=== PATIENT | female | born 1975 | race African-American/Black ===

== ENCOUNTER 2018-08-09 23:30 | Emergency (ER) | payer OTHER ==
[~2018-08-09] VITALS: Ht 177.8 cm; Wt 63.5 kg
--- OUTSIDE RECORDS SUMMARY | 2018-08-09 23:33 | XMS REPORT | Clinical Summary ---
Author Author [facility] Organization [facility] Address Unknown Phone Unavailable Care Team Providers Care Roll Former Name Role Phone Asked, No Pcp PCP Unavailable Allergies No Known Allergies Medications End Date Status Medication Sig Dispensed Refills Start Date 05/03/2018 magnesium citrate Take 1 Bottle 296 mL 0 solution (296 mL 8 total) by mouth once for 1 dose. 05/13/2018 etodolac (LODINE) 500 MG Take 1 tablet 20 tablet 0 tablet (500 mg 8 total) by mouth 2 (two) times a day as needed (pain) for up to 10 days. Active Problems Not on file Encounters Care Team Description Date Type Specialty Corey Murphy MD Flank pain (Primary Dx); Constipation, unspecified constipation type 05/03/2018 Emergency Emergency Medicine 05/03/2018 Travel after 08/08/2017 Social History Date Tobacco Use Types Packs/Day Years Used Never Assessed Sex Assigned at Date Recorded Not on file Industry Job Start Date Occupation Not on file Not on file Not on file Travel End Travel History Travel Start No recent travel history available. Last Filed Vital Signs Time Taken Vital Sign Reading 05/03/2018 9:40 PM [employer] Blood Pressure 121/72 05/03/2018 9:40 PM [employer]IN[employer] PROGRAMMER Pulse 81 05/03/2018 6:52 PM [employer]IN[employer] PROGRAMMER Temperature 36.8 C (98.2 F) 05/03/2018 9:40 PM [employer]IOIN[employer] PROGRAMMER Respiratory Rate 20 05/03/2018 9:40 PM BIOINFORMATICS PROGRAMMER Oxygen Saturation 99% - Inhaled Oxygen - Concentration 05/03/2018 6:54 PM [employer]IN[employer] PROGRAMMER Weight 63.5 kg (140 lb) 05/03/2018 6:54 PM BIOINFORMATICS PROGRAMMER Height 177.8 cm (5' 10") 05/03/2018 6:54 PM BIOIN[employer] PROGRAMMER Body Mass Index 20.09 Plan of Treatment Health Maintenance Due Date Last Done Comments CERVICAL CANCER SCREENING 1995 INFLUENZA VACCINE 01/17/2018 Procedures Comments Procedure Name Priority Date/Time Associated Diagnosis CT ABDOMEN PELVIS W STAT 05/03/2018 CONTRAST 8:44 PM BIOINFORMAT[employer] PROGRAMMER ESTIMATED GFR STAT 05/03/2018 7:45 PM BIOINFORMATICS PROGRAMMER HCG QUALITATIVE, SERUM STAT 05/03/2018 SCREEN 7:45 PM BIOINFORMATICS PROGRAMMER LIPASE LEVEL STAT 05/03/2018 7:45 PM BIOINFORMATICS PROGRAMMER COMPREHENSIVE METABOLIC STAT 05/03/2018 PANEL 7:45 PM BIOINFORMATICS PROGRAMMER URINALYSIS SCREEN AND STAT 05/03/2018 MICROSCOPY, WITH REFLEX 7:45 PM BIOINFORMATICS PROGRAMMER TO CULTURE PARTIAL THROMBOPLASTIN STAT 05/03/2018 TIME (PTT) 7:45 PM BIOINFORMATICS PROGRAMMER PROTHROMBIN TIME WITH INR STAT 05/03/2018 7:45 PM BIOINFORMATICS PROGRAMMER HC COMPLETE BLD COUNT STAT 05/03/2018 W/AUTO DIFF 7:45 PM BIOINFORMATICS PROGRAMMER URINE CULTURE STAT 05/03/2018 7:45 PM BIOINFORMATICS PROGRAMMER XR CHEST 2 VW STAT 05/03/2018 7:24 PM BIOINFORMATICS PROGRAMMER after 08/08/2017 Results * CT Abdomen Pelvis W Contrast (05/03/2018 8:44 PM BIOINFORMATICS PROGRAMMER) Narrative Performed At CT ABDOMEN PELVIS W CONTRAST [facility] CLINICAL INDICATION:abdominal pain TECHNIQUE: Multidetector CT of the abdomen and pelvis was performed following intravenous administration of iodinated contrast with multiplanar reformats. CT scans are performed using radiation dose reduction techniques (iterative reconstruction and/or automated exposure control). Technical factors are evaluated and adjusted to ensure appropriate moderation of exposure. Automated dose management technology is applied to adjust radiation exposure while achieving a diagnostic quality image. COMPARISON:None. FINDINGS: Lung bases:Clear. Liver:Few subcentimeter hepatic cysts/hypodensities are overall too small to characterize though are likely benign. [No follow-up recommended unless clinically warranted.] Gallbladder and biliary:Gallbladder is relatively contracted. Common bile duct is not dilated. Pancreas:Normal. Spleen:Normal. Gastrointestinal:Moderate fecal material throughout the colon. Large and small bowel are normal in caliber. Appendix is visualized and appears normal. Adrenals:Normal. Kidneys and ureters:No mass or hydronephrosis. Urinary bladder:Normal. Lymph nodes:No enlarged lymph nodes in the abdomen or pelvis. Peritoneum:No ascites or free air. Vascular:Unremarkable. Reproductive organs:Uterus is normal. Unremarkable adnexae. Abdominal wall:Unremarkable. Bones:No acute osseous abnormalities. IMPRESSION: Moderate fecal material throughout the colon. Otherwise negative CT for acute pathology within the abdomen and pelvis. [facility]-[id number] Procedure Note Interface, Radiology Results Incoming - 05/03/2018 8:[address] ABDOMEN PELVIS W CONTRAST CLINICAL INDICATION: abdominal pain TECHNIQUE: Multidetector CT of the abdomen and pelvis was performed following intravenous administration of iodinated contrast with multiplanar reformats. CT scans are performed using radiation dose reduction techniques (iterative reconstruction and/or automated exposure control). Technical factors are evaluated and adjusted to ensure appropriate moderation of exposure. Automated dose management technology is applied to adjust radiation exposure while achieving a diagnostic quality image. COMPARISON: None. FINDINGS: Lung bases: Clear. Liver: Few subcentimeter hepatic cysts/hypodensities are overall too small to characterize though are likely benign. [No follow-up recommended unless clinically warranted.] Gallbladder and biliary: Gallbladder is relatively contracted. Common bile duct is not dilated. Pancreas: Normal. Spleen: Normal. Gastrointestinal: Moderate fecal material throughout the colon. Large and small bowel are normal in caliber. Appendix is visualized and appears normal. Adrenals: Normal. Kidneys and ureters: No mass or hydronephrosis. Urinary bladder: Normal. Lymph nodes: No enlarged lymph nodes in the abdomen or pelvis. Peritoneum: No ascites or free air. Vascular: Unremarkable. Reproductive organs: Uterus is normal. Unremarkable adnexae. Abdominal wall: Unremarkable. Bones: No acute osseous abnormalities. IMPRESSION: Moderate fecal material throughout the colon. Otherwise negative CT for acute pathology within the abdomen and pelvis. [facility]-[id number] Performing Organization Address City/State/Zipcode Phone Number [place] [address] [place] [address] * Urinalysis screen and microscopy, with reflex to culture (05/03/2018 7:45 PM BIOINFORMATICS PROGRAMMER) Specimen site Clean catch [facility] Color, UA Straw [facility] Appearance, UA Clear [facility] Specific gravity, UA 1.005 1.001 - 1.035 [facility] pH, UA 8.0 5.0 - 8.5 [facility] Protein, UA Negative Negative [facility] Glucose, UA Negative Negative [facility] Ketones, UA Negative Negative [facility] Bilirubin, UA Negative Negative [facility] Blood, UA Moderate (A) Negative [facility] Nitrite, UA Negative Negative [facility] Urobilinogen, UA Negative <2.0 [facility] Leukocyte esterase, UA Negative Negative [facility] Epithelial cells, UA Few /HPF [facility] WBC, UA 0-5 0 - 4 /HPF [facility] RBC, UA 6-10 (H) 0 - 5 /HPF [facility] Bacteria, UA None seen None seen [facility] Yeast, UA None seen [facility] Yeast with pseudohyphae, None seen [facility] Specimen Urine Performing Organization Address [facility] [address]/[facility] Phone Number [address] [place] [address] PATHOLOGY AND GENOMIC MEDICINE [address] * Estimated GFR (05/03/2018 7:45 PM BIOINFORMATICS PROGRAMMER) Estimated GFR >=90 mL/min/1.73 m2 [facility] Comment: [facility] CatergoryUnitsInte rpretation G1 >=90 Normal or high G2 60-89Mildly decreased G2y92-59 Mildly to moderately decreased C3p77-50 Moderately to severely decreased G4 15-29Severely decreased G5 <15Kidney failure The eGFR was calculated using the Chronic Kidney Disease Epidemiology Collaboration (CKD-EPI) equation. Interpretation is based on recommendations of the National Kidney Foundation-Kidney Disease Outcomes Quality Initiative (NKF-KDOQI) published in 2014. Specimen Plasma specimen Performing Organization Address [facility] [address]/[facility] Phone Number [address] [place] [address] PATHOLOGY AND GENOMIC MEDICINE [address] * Partial thromboplastin time, activated (05/03/2018 7:45 PM BIOINFORMATICS PROGRAMMER) PTT 28.9 23.0 - 36.0 sec JEREMIAH YAZDANISM Comment: [facility] PTT therapeutic range for unfractionated heparin is 61.0-112.0 seconds which corresponds to Anti-Xa 0.3-0.7 U/ml. Specimen Blood Performing Organization Address [facility] [address]/[facility] Phone Number [address] [place] [address] PATHOLOGY AND GENOMIC MEDICINE [address] * Prothrombin time with INR (05/03/2018 7:45 PM BIOINFORMATICS PROGRAMMER) Prothrombin time 13.0 11.5 - 14.5 sec [facility] INR 1.0 [facility] Comment: [facility] The International Normalized Ratio (INR) is a therapeutic monitoring tool for patients who are stable on oral anticoagulant therapy. An INR of 2.0-3.0 is suggested for deep vein thrombosis/pulmonary embolism. Specimen Blood Performing Organization Address [facility] [address]/[facility] Phone Number [place] [address] [place] [address] PATHOLOGY AND [facility] MEDICINE [address] * CBC with platelet and differential (05/03/2018 7:45 PM BIOINFORMATICS PROGRAMMER) WBC 6.49 4.50 - 11.00 k/uL [facility] RBC 4.14 (L) 4.20 - 5.50 m/uL [facility] HGB 11.9 (L) 12.0 - 16.0 g/dL [facility] HCT 36.5 (L) 37.0 - 47.0 % [facility] MCV 88.2 82.0 - 100.0 fL [facility] MCH 28.7 27.0 - 34.0 pg [facility] MCHC 32.6 31.0 - 37.0 g/dL [facility] RDW - SD 38.9 37.0 - 55.0 fL [facility] MPV 10.7 8.8 - 13.2 fL [facility] Platelet count 282 150 - 400 k/uL [facility] Nucleated RBC 0.00 /100 WBC [facility] Neutrophils 60.9 39.0 - 69.0 % [facility] Lymphocytes 28.4 25.0 - 45.0 % [facility] Monocytes 6.6 0.0 - 10.0 % [facility] Eosinophils 2.8 0.0 - 5.0 % [facility] Basophils 1.1 (H) 0.0 - 1.0 % [facility] Specimen Blood Performing Organization Address [facility] [address]/[facility] Phone Number [address] [place] [address] PATHOLOGY AND GENOMIC MEDICINE [address] * Urine culture (05/03/2018 7:45 PM BIOINFORMATICS PROGRAMMER) Urine culture SEE COMMENTComment: [facility] Bacteriuria screen negative. [facility] Specimen Urine Performing Organization Address [facility] Phone Number [address] [place] [address] PATHOLOGY AND GENOMIC MEDICINE [address] * hCG qualitative, serum screen (05/03/2018 7:45 PM BIOINFORMATICS PROGRAMMER) hCG qualitative, serum Negative [facility] Comment: [facility] [id number] EXP Specimen Blood Performing Organization Address [facility] [address]/[facility] Phone Number [address] [place] [address] PATHOLOGY AND GENOMIC MEDICINE [address] * Lipase level (05/03/2018 7:45 PM BIOINFORMATICS PROGRAMMER) Lipase 42 13 - 60 U/L [facility] Specimen Plasma specimen Performing Organization Address [facility] [address]/[facility] Phone Number [address] [place] [address] PATHOLOGY AND GENOMIC MEDICINE [address] * Comprehensive metabolic panel (05/03/2018 7:45 PM BIOINFORMATICS PROGRAMMER) Sodium 140 135 - 148 mEq/L [facility] Potassium 3.9 3.5 - 5.0 mEq/L [facility] Chloride 104 98 - 112 mEq/L [facility] CO2 25 24 - 31 mEq/L [facility] Anion gap 11@ANIO 7 - 15 mEq/L [facility] BUN 13 6 - 20 mg/dL [facility] Creatinine 0.80 0.50 - 0.90 mg/dL [facility] Glucose 66 65 - 99 mg/dL [facility] Calcium 9.6 8.3 - 10.2 mg/dL [facility] Protein 8.2 6.3 - 8.3 g/dL [facility] Comment: [facility] 4.6-7.0 g/dL 1 week 4.4-7.6 g/dL 7 months-1year 5.1-7.3 g/dL 1-2 years5.6-7 .5 g/dL >3 years6.0-8 .0 g/dL 18-150 6.3-8.3 g/dL Albumin 4.5 3.5 - 5.0 g/dL [facility] A/G ratio 1.2 0.7 - 3.8 [facility] Alkaline phosphatase 51 35 - 104 U/L [facility] AST 31 10 - 35 U/L [facility] ALT 37 5 - 50 U/L [facility] Total bilirubin 0.3 0.0 - 1.2 mg/dL [facility] Specimen Plasma specimen Performing Organization Address City/State/Zipcode Phone Number [facility] [address] [place] [address] PATHOLOGY AND GENOMIC MEDICINE [address] * XR Chest 2 Vw (05/03/2018 7:24 PM BIOINFORMATICS PROGRAMMER) Narrative Performed At EXAMINATION:XR CHEST 2 VW [facility] CLINICAL HISTORY:Flank pain COMPARISON:None IMPRESSION: Unremarkable 2 view chest The lungs are clear. Few scattered benign granulomatous changes The heart is not enlarged. The bony structures are within normal limits. [id number] Procedure Note Hm Interface, Radiology Results Incoming - 05/03/2018 7:28 PM BIOINFORMATICS PROGRAMMER EXAMINATION: XR CHEST 2 VW CLINICAL HISTORY: Flank pain COMPARISON: None IMPRESSION: Unremarkable 2 view chest The lungs are clear. Few scattered benign granulomatous changes The heart is not enlarged. The bony structures are within normal limits. [id number] Performing Organization Address City/State/Zipcode Phone Number [facility] [address] [place] [address] after 08/08/2017 Advance Directives Patient has advance care planning documents on file. For more information, arik pate contact: Jeremiah Mcneil [address] [place] [address]
--- OUTSIDE RECORDS SUMMARY | 2018-08-09 23:33 | XMS REPORT ---
Author Author [facility] Address Unknown Phone Unavailable Care Team Providers Care Mirror Painter Name Role Phone Unavailable Unavailable Payers Payer Name Policy Type Policy Number Effective Date Expiration Date Problems This patient has no known problems. Allergies, Adverse Reactions, Alerts Allergy Name Allergy Type Status Severity Reaction(s) Onset Date Inactive Date Treating Clinician Comments NSAIDS (Non-Steroidal Anti-Inflamma DA Active [place] 2013-10-20 00:00:00 ASPIRIN DA Active [place] 2013-10-20 00:00:00 Medications This patient has no known medications.
[2018-08-10] MEDS ORDERED: ONDANSETRON HCL INJ 2MG/ML 2ML 2 MG/ML VIAL IV STA (00:09)
[2018-08-10] MEDS ORDERED: MORPHINE SULFATE INJ 4 MG/ML INJ 1ML IV ONE (00:15)
[2018-08-10 01:18] LABS: BASOPHILS # (AUTO) 0.1 (0.0-0.1); BASOPHILS % 0.6 % (0.0-1.0); EOSINOPHILS # (AUTO) 0.1 (0.0-0.4); EOSINOPHILS % 1.5 % (0.0-6.0); HEMATOCRIT 31.2 % (34.2-44.1); HEMOGLOBIN 10.5 g/dL (12.0-16.0); MEAN CORPUSCULAR HEMOGLOBIN 28.2 pg (28-32); MEAN CORPUSCULAR HGB CONC 33.7 g/dL (31-35); MEAN CORPUSCULAR VOLUME 83.6 fL (81-99); MONOCYTES # (AUTO) 0.4 (0.2-0.8); MONOCYTES % 4.5 % (4.4-11.3); NEUTROPHILS # (AUTO) 7.1 (2.1-6.9); NEUTROPHILS % 82.1 % (38.7-80.0); PLATELET COUNT 265 x10e3/uL (140-360); RED BLOOD COUNT 3.73 x10e6/uL (3.6-5.1); RED CELL DISTRIBUTION WIDTH 13.3 % (11.7-14.4)
[2018-08-10 01:36] LABS: BILIRUBIN,URINE NEGATIVE (NEGATIVE); CLARITY,URINE CLOUDY (CLEAR); COLOR,URINE STRAW (YELLOW); KETONES,URINE NEGATIVE (NEGATIVE); LEUKOCYTE ESTERASE ,URINE TRACE (NEGATIVE); NITRITE,URINE NEGATIVE (NEGATIVE); PROTEIN,URINE DIPSTICK NEGATIVE (NEGATIVE); URINE UROBILINOGEN 0.2 mg/dL (0.2 - 1)
[2018-08-10 01:37] LABS: PREGNANCY TEST, URINE NEGATIVE (NEGATIVE)
[2018-08-10 01:38] LABS: ALANINE AMINOTRANSFERASE 32 IU/L (0-55); ALBUMIN 3.6 g/dL (3.5-5.0); ALBUMIN/GLOBULIN RATIO 1.1 (0.8-2.0); ALKALINE PHOSPHATASE 53 IU/L (40-150); BLOOD UREA NITROGEN 7 mg/dL (7-26); BUN/CREATININE RATIO 9 (6-25); CALCIUM 8.9 mg/dL (8.4-10.2); CARBON DIOXIDE 22 mmol/L (22-29); CHLORIDE 108 mmol/L (98-107); CREATININE, SERUM 0.77 mg/dL (0.57-1.11); EST GLOMERULAR FILTRATION RATE > 60 ML/MIN (60-); GLUCOSE 101 mg/dL (74-118); SODIUM 138 mmol/L (136-145)
[2018-08-10 01:49] LABS: BACTERIA,URINE MANY /HPF; EPITHELIAL CELLS,URINE FEW /LPF; RBC,URINE >50 /HPF (0-5)
== END 2018-08-10 02:55 | disposition home or self-care (01) ==
LOC: ER 23:30
DX: R10.9 Unspecified abdominal pain (principal); R11.0 Nausea; N30.91 Cystitis, unspecified with hematuria
CPT/HCPCS: 36415; 80053; 81001; 81025; 85025; 96374; 96375; 99284; J2270; J2405

== ENCOUNTER 2018-08-27 20:06 | Emergency (ER) | payer OTHER ==
--- OUTSIDE RECORDS SUMMARY | 2018-08-27 20:09 | XMS REPORT | Clinical Summary ---
Author Author [facility] Address Unknown Phone Unavailable Care Team Providers [facility] Agent Name Role Phone Asked, No Pcp PCP [...] 05/03/2018 Emergency Emergency Medicine 05/03/2018 Travel after 08/26/2017 Social History Date Tobacco Use Types Packs/Day Years Used Never Assessed Sex Assigned at Date Recorded Not on file Industry Job Start Date Occupation Not on file Not on file Not on file Travel End Travel History Travel Start No recent travel history available. Last Filed Vital Signs Time Taken Vital Sign Reading 05/03/2018 9:40 PM INTERNAL CONTROLS MANAGER Blood Pressure 121/72 05/03/2018 9:40 PM INTERNAL CONTROLS MANAGER Pulse 81 05/03/2018 6:52 PM INTERNAL CONTROLS MANAGER Temperature 36.8 C (98.2 F) 05/03/2018 9:40 PM INTERNAL CONTROLS MANAGER Respiratory Rate 20 05/03/2018 9:40 PM INTERNAL CONTROLS MANAGER Oxygen Saturation 99% - Inhaled Oxygen - Concentration 05/03/2018 6:54 PM INTERNAL CONTROLS MANAGER Weight 63.5 kg (140 lb) 05/03/2018 6:54 PM INTERNAL CONTROLS MANAGER Height 177.8 cm (5' 10") 05/03/2018 6:54 PM INTERNAL CONTROLS MANAGER Body Mass Index 20.09 Plan of Treatment Health Maintenance Due Date Last Done Comments CERVICAL CANCER SCREENING 1995 INFLUENZA VACCINE 01/17/2018 Procedures Comments Procedure Name Priority Date/Time Associated Diagnosis CT ABDOMEN PELVIS W STAT 05/03/2018 CONTRAST 8:44 PM INTERNAL CONTROLS MANAGER ESTIMATED GFR STAT 05/03/2018 7:45 PM INTERNAL CONTROLS MANAGER HCG QUALITATIVE, SERUM STAT 05/03/2018 SCREEN 7:45 PM INTERNAL CONTROLS MANAGER LIPASE LEVEL STAT 05/03/2018 7:45 PM INTERNAL CONTROLS MANAGER COMPREHENSIVE METABOLIC STAT 05/03/2018 PANEL 7:45 PM INTERNAL CONTROLS MANAGER URINALYSIS SCREEN AND STAT 05/03/2018 MICROSCOPY, WITH REFLEX 7:45 PM INTERNAL CONTROLS MANAGER TO CULTURE PARTIAL THROMBOPLASTIN STAT 05/03/2018 TIME (PTT) 7:45 PM INTERNAL CONTROLS MANAGER PROTHROMBIN TIME WITH INR STAT 05/03/2018 7:45 PM INTERNAL CONTROLS MANAGER HC COMPLETE BLD COUNT STAT 05/03/2018 W/AUTO DIFF 7:45 PM INTERNAL CONTROLS MANAGER URINE CULTURE STAT 05/03/2018 7:45 PM INTERNAL CONTROLS MANAGER XR CHEST 2 VW STAT 05/03/2018 7:24 PM INTERNAL CONTROLS MANAGER after 08/26/2017 Results * CT Abdomen Pelvis W Contrast (05/03/2018 8:44 PM INTERNAL CONTROLS MANAGER) Narrative Performed At CT ABDOMEN PELVIS W [...] acute pathology within the abdomen and pelvis. [facility]-[id number] Procedure Note Interface, Radiology Results Incoming - 05/03/2018 8:52 PM INTERNAL CONTROLS MANAGER CT ABDOMEN PELVIS W CONTRAST CLINICAL INDICATION: [...] acute pathology within the abdomen and pelvis. [facility]-[id number] Performing Organization Address City/State/Zipcode Phone Number [place] [address] [place] [address] * Urinalysis screen and microscopy, with reflex to culture (05/03/2018 7:45 PM INTERNAL CONTROLS MANAGER) Specimen site Clean catch [facility] Color, UA Straw [facility] Appearance, UA Clear [facility] Specific gravity, UA 1.005 1.001 - 1.035 [facility] pH, UA 8.0 5.0 - 8.5 [facility] Protein, UA Negative Negative [facility] Glucose, UA Negative Negative [facility] Ketones, UA Negative Negative [facility] Bilirubin, UA Negative Negative [facility] Blood, UA Moderate (A) Negative [facility] Nitrite, UA Negative Negative [facility] Urobilinogen, UA Negative <2.0 [facility] Leukocyte esterase, UA Negative Negative [facility] Epithelial cells, UA Few /HPF [facility] WBC, UA 0-5 0 - 4 /HPF [facility] RBC, UA 6-10 (H) 0 - 5 /HPF [facility] Bacteria, UA None seen None seen [facility] Yeast, UA None seen [facility] Yeast with pseudohyphae, None seen [facility] Specimen Urine Performing Organization Address [facility] Phone Number [address] [place] [address] PATHOLOGY AND GENOMIC MEDICINE [address] * Estimated GFR (05/03/2018 7:45 PM INTERNAL CONTROLS MANAGER) Estimated GFR >=90 mL/min/1.73 m2 [facility] Comment: [facility] CatergoryUnitsInte rpretation G1 >=90 Normal or high G2 60-89Mildly decreased [id number] Mildly to moderately decreased [id number] Moderately to severely decreased G4 15-29Severely decreased G5 <15Kidney failure The eGFR was calculated using the Chronic Kidney Disease Epidemiology Collaboration (CKD-EPI) equation. Interpretation is based on recommendations of the National Kidney Foundation-Kidney Disease Outcomes Quality Initiative (NKF-KDOQI) published in 2014. Specimen Plasma specimen Performing Organization Address [facility] Phone Number [address] [place] [address] PATHOLOGY AND GENOMIC MEDICINE [address] * Partial thromboplastin time, activated (05/03/2018 7:45 PM INTERNAL CONTROLS MANAGER) PTT 28.9 23.0 - 36.0 sec [facility] Comment: [facility] PTT therapeutic range for unfractionated heparin is 61.0-112.0 seconds which corresponds to Anti-Xa 0.3-0.7 U/ml. Specimen Blood Performing Organization Address [facility] Phone Number [address] [place] [address] PATHOLOGY AND GENOMIC MEDICINE [address] * Prothrombin time with INR (05/03/2018 7:45 PM INTERNAL CONTROLS MANAGER) Prothrombin time 13.0 11.5 - 14.5 sec [facility] INR 1.0 [facility] Comment: [facility] The International Normalized Ratio (INR) is a therapeutic monitoring tool for patients who are stable on oral anticoagulant therapy. An INR of 2.0-3.0 is suggested for deep vein thrombosis/pulmonary embolism. Specimen Blood Performing Organization Address [facility] Phone Number [place] [address] [place] [address] PATHOLOGY AND [facility] MEDICINE [address] * CBC with platelet and differential (05/03/2018 7:45 PM INTERNAL CONTROLS MANAGER) WBC 6.49 4.50 - 11.00 k/uL [facility] RBC 4.14 (L) 4.20 - 5.50 m/uL [facility] HGB 11.9 (L) 12.0 - 16.0 g/dL [facility] HCT 36.5 (L) 37.0 - 47.0 % [facility] MCV 88.2 82.0 - 100.0 fL [facility] MCH 28.7 27.0 - 34.0 pg [facility] MCHC 32.6 31.0 - 37.0 g/dL [facility] RDW - SD 38.9 37.0 - 55.0 fL [facility] MPV 10.7 8.8 - 13.2 fL [facility] Platelet count 282 150 - 400 k/uL [facility] Nucleated RBC 0.00 /100 WBC [facility] Neutrophils 60.9 39.0 - 69.0 % [facility] Lymphocytes 28.4 25.0 - 45.0 % [facility] Monocytes 6.6 0.0 - 10.0 % [facility] Eosinophils 2.8 0.0 - 5.0 % [facility] Basophils 1.1 (H) 0.0 - 1.0 % [facility] Specimen Blood Performing Organization Address [facility] Phone Number [address] [place] [address] PATHOLOGY AND GENOMIC MEDICINE [address] * Urine culture (05/03/2018 7:45 PM INTERNAL CONTROLS MANAGER) Urine culture SEE COMMENTComment: [facility] Bacteriuria screen negative. [facility] Specimen Urine Performing Organization Address [facility] Phone Number [address] [place] [address] PATHOLOGY AND GENOMIC MEDICINE [address] * hCG qualitative, serum screen (05/03/2018 7:45 PM INTERNAL CONTROLS MANAGER) hCG qualitative, serum Negative [facility] Comment: [facility] [address] [id number] EXP Specimen Blood Performing Organization Address [facility] Phone Number [address] [place] [address] PATHOLOGY AND GENOMIC MEDICINE [address] * Lipase level (05/03/2018 7:45 PM INTERNAL CONTROLS MANAGER) Lipase 42 13 - 60 U/L [facility] Specimen Plasma specimen Performing Organization Address [facility] Phone Number [address] [place] [address] PATHOLOGY AND GENOMIC MEDICINE [address] * Comprehensive metabolic panel (05/03/2018 7:45 PM INTERNAL CONTROLS MANAGER) Sodium 140 135 - 148 mEq/L [facility] Potassium 3.9 3.5 - 5.0 mEq/L [facility] Chloride 104 98 - 112 mEq/L [facility] CO2 25 24 - 31 mEq/L [facility] Anion gap 11@ANIO 7 - 15 mEq/L [facility] BUN 13 6 - 20 mg/dL [facility] Creatinine 0.80 0.50 - 0.90 mg/dL [facility] Glucose 66 65 - 99 mg/dL [facility] Calcium 9.6 8.3 - 10.2 mg/dL [facility] Protein 8.2 6.3 - 8.3 g/dL [facility] Comment: [facility] 4.6-7.0 g/dL 1 week 4.4-7.6 g/dL 7 months-1year 5.1-7.3 g/dL 1-2 years5.6-7 .5 g/dL >3 years6.0-8 .0 g/dL 18-150 6.3-8.3 g/dL Albumin 4.5 3.5 - 5.0 g/dL [facility] A/G ratio 1.2 0.7 - 3.8 [facility] Alkaline phosphatase 51 35 - 104 U/L [facility] AST 31 10 - 35 U/L [facility] ALT 37 5 - 50 U/L [facility] Total bilirubin 0.3 0.0 - 1.2 mg/dL [facility] Specimen Plasma specimen Performing Organization Address City/State/Zipcode Phone Number [facility] [address] [place] [address] PATHOLOGY AND GENOMIC MEDICINE [address] * XR Chest 2 Vw (05/03/2018 7:24 PM INTERNAL CONTROLS MANAGER) Narrative Performed At EXAMINATION:XR CHEST 2 VW [facility] CLINICAL HISTORY:Flank pain COMPARISON:None IMPRESSION: Unremarkable 2 view chest The lungs are clear. Few scattered benign granulomatous changes The heart is not enlarged. The bony structures are within normal limits. [id number] Procedure Note Hm Interface, Radiology Results Incoming - 05/03/2018 7:28 PM INTERNAL CONTROLS MANAGER EXAMINATION: XR CHEST 2 VW CLINICAL HISTORY: Flank pain COMPARISON: None IMPRESSION: Unremarkable 2 view chest The lungs are clear. Few scattered benign granulomatous changes The heart is not enlarged. The bony structures are within normal limits. [id number] Performing Organization Address City/State/Zipcode Phone Number [facility] [address] [place] [address] after 08/26/2017 Advance Directives Patient has advance care planning documents on file. For more information, arik pate contact: Jeremiah Mcniel [address] [place] [address]
--- OUTSIDE RECORDS SUMMARY | 2018-08-27 20:09 | XMS REPORT | Clinical Summary ---
Author Author ROB [facility] Address Unknown Phone Unavailable Care Team Providers Care Body Former Name Role Phone Meron Wagner MD PCP Allergies Comments Active Allergy Reactions Severity Noted Date Aspirin 1975 Anemia Nsaids (Non-Steroidal Other (See 08/14/2018 Anti-Inflammatory Drug) Comments) Anemia Sulfa (Sulfonamide Other (See 08/14/2018 Antibiotics) Comments) Medications End Date Status Medication Sig Dispensed Refills Start Date Active acetaminophen (TYLENOL) Take by 0 325 mg Cap mouth. Active benzonatate (TESSALON) TK ONE C PO 0 200 MG capsule TID PRN FOR 9 COUGH Active ondansetron (ZOFRAN-ODT) PLACE 1 T ON 0 4 MG disintegrating THE TONGUE 9 tablet AND LET DISSOLVE Q 6 H NV 08/30/2018 Active HYDROcodone-acetaminophen Take 1 tablet 30 tablet 0 (NORCO 5-325) 5-325 mg by mouth 9 per tablet every 4 (four) hours as needed for up to 10 days. Max Daily Amount: 6 tablets 08/20/2018 Discontinued acetaminophen-codeine TK 1 T PO Q 6 0 (TYLENOL #3) 300-30 mg H PRN P 9 per tablet 08/20/2018 Discontinued cefdinir (OMNICEF) 300 MG Take 300 mg 0 capsule by mouth. 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 of hgqkpbq-6-veqcpjuigxd deficiency (G6PD) 08/17/2018 Acute left flank pain 08/14/2018 Microscopic hematuria 08/14/2018 Nausea 08/14/2018 Encounters Care Team Description Date Type Specialty 08/15/2018 Travel Sherman Dhaliwal MD Boss, MD Wilian Gray Adriana, MD Hite, Wayne K., DO Loin pain hematuria syndrome (Primary Dx); Acute left flank pain; Acute left-sided low back pain without sciatica; Microscopic hematuria; Nausea 08/14/2018 [facility] Internal Medicine - Encounter 08/20/2018 08/14/2018 Travel after 08/26/2017 Social History Date Tobacco Use Types Packs/Day Years Used Never Smoker Smokeless Tobacco: Never Used Alcohol Use Drinks/Week oz/Week Comments No Alcohol Habits Answer Date Recorded How often do you have a drink containing alcohol? Never 08/14/2018 How many drinks containing alcohol do you have on Not asked a typical day when you are drinking? How often do you have six or more drinks on one Not asked occasion? Sex Assigned at Date Recorded Not on file Industry Job Start Date Occupation Not on file Not on file Not on file Travel End Travel History Travel Start No recent travel history available. Last Filed Vital Signs Time Taken Vital Sign Reading 08/20/2018 12:00 PM WATCHSTANDER Blood Pressure 93/52 08/20/2018 12:00 PM WATCHSTANDER Pulse 66 08/20/2018 12:00 PM WATCHSTANDER Temperature 36.9 C (98.5 F) 08/20/2018 12:00 PM WATCHSTANDER Respiratory Rate 18 08/20/2018 12:00 PM WATCHSTANDER Oxygen Saturation 100% - Inhaled Oxygen - Concentration 08/14/2018 12:36 PM WATCHSTANDER Weight 63.5 kg (140 lb) 08/14/2018 10:00 PM WATCHSTANDER Height 177.8 cm (5' 10") 08/14/2018 12:36 PM WATCHSTANDER Body Mass Index 20.09 Plan of Treatment Not on file Procedures Comments Procedure Name Priority Date/Time Associated Diagnosis LACTATE DEHYDROGENASE Routine 08/18/2018 (LDH) 5:18 AM WATCHSTANDER HEMOGLOBIN AND HEMATOCRIT Routine 08/18/2018 5:18 AM WATCHSTANDER CREATININE, RANDOM URINE Routine 08/17/2018 4:56 PM WATCHSTANDER PROTEIN, RANDOM URINE Routine 08/17/2018 4:56 PM WATCHSTANDER XR SPINE THORACIC 1 VIEW Routine 08/17/2018 2:20 PM WATCHSTANDER XR SPINE LUMBAR 1 VIEW Routine 08/17/2018 2:20 PM WATCHSTANDER ANTI-NEUTROPHIL Routine 08/17/2018 CYTOPLASMIC AB (ANCA) 7:10 AM WATCHSTANDER FOUZIA TITER AND PATTERN Routine 08/17/2018 7:07 AM WATCHSTANDER BASIC METABOLIC PANEL (7) Routine 08/17/2018 7:07 AM WATCHSTANDER COMPLEMENT, TOTAL (CH50) Routine 08/17/2018 7:07 AM WATCHSTANDER COMPLEMENT COMPONENT C4 Routine 08/17/2018 7:07 AM WATCHSTANDER COMPLEMENT COMPONENT C3 Routine 08/17/2018 7:07 AM WATCHSTANDER DOUBLE-STRANDED DNA Routine 08/17/2018 (DSDNA) ANTIBODY 7:07 AM WATCHSTANDER PHOSPHATIDYLSERINE ABS Routine 08/17/2018 (IGG, IGM) 7:07 AM WATCHSTANDER ANTI-NUCLEAR ANTIBODY Routine 08/17/2018 (FOUZIA) 7:07 AM WATCHSTANDER US RENAL COMPLETE Routine 08/16/2018 8:39 AM WATCHSTANDER CREATINE KINASE (CK) Routine 08/16/2018 4:48 AM WATCHSTANDER BASIC METABOLIC PANEL (7) Routine 08/16/2018 4:48 AM WATCHSTANDER CBC W/PLT COUNT & AUTO Routine 08/15/2018 DIFFERENTIAL 6:33 AM WATCHSTANDER CBC W/PLT COUNT & AUTO Routine 08/15/2018 DIFFERENTIAL 6:33 AM WATCHSTANDER BASIC METABOLIC PANEL (7) Routine 08/15/2018 6:[address] ABDOMEN/PELVIS WITH IV STAT 08/14/2018 CONTRAST 5:[address] CHEST WITH IV CONTRAST STAT 08/14/2018 5:16 PM WATCHSTANDER SCREEN, URINE STAT 08/14/2018 3:42 PM WATCHSTANDER URINALYSIS W/ REFLEX STAT 08/14/2018 URINE CULTURE 3:42 PM WATCHSTANDER CBC W/PLT COUNT & AUTO STAT 08/14/2018 DIFFERENTIAL 2:01 PM WATCHSTANDER PT/APTT STAT 08/14/2018 2:01 PM WATCHSTANDER COMPREHENSIVE METABOLIC STAT 08/14/2018 PANEL 2:01 PM WATCHSTANDER CBC W/PLT COUNT & AUTO STAT 08/14/2018 DIFFERENTIAL 2:01 PM WATCHSTANDER after 08/26/2017 Results * Hemoglobin and hematocrit (08/18/2018 5:18 AM WATCHSTANDER) Hemoglobin 10.3 (L) 11.2 - 15.7 GM/DL [facility] Hematocrit 30.7 (L) 34.1 - 44.9 % [facility] Specimen Blood - Arm, Left Performing Organization Address [facility] Phone Number [address] * Lactate dehydrogenase (LDH) (08/18/2018 5:18 AM WATCHSTANDER) LDH 122 (L) 125 - 220 U/L [facility] Specimen Blood - Arm, Left Performing Organization Address [facility] Phone Number [address] * Protein, random urine (08/17/2018 4:56 PM WATCHSTANDER) Protein, Urine 9 0 - 14 mg/dL [facility] Specimen Urine - Urine, Clean Catch Performing Organization Address [facility] Phone Number [address] * Creatinine, random urine (08/17/2018 4:56 PM WATCHSTANDER) Creatinine, Ur 113.3 mg/dL [facility] Specimen Urine - Urine, Clean Catch Narrative Performed At Reference Range: No Normals [facility] Performing Organization Address City/State/Zipcode Phone Number [facility] [address] [place] [address] MEDICAL CENTER * XR spine thoracic 1 view (08/17/2018 2:20 PM WATCHSTANDER) Narrative Performed At FINAL REPORT [facility] TECHNIQUE: Lateral views of the thoracic spine dated 08/17/2018. HISTORY: Back pain. COMPARISON: None. IMPRESSION: Frontal view was not provided therefore counting of the vertebral bodies is not possible. The cervical thoracic junction is not well-visualized. Bones are osteopenic. There is an exaggerated thoracic kyphosis in the upper thoracic spine. No fracture. Signed: Willa Powell MD Report Verified Date/Time:08/17/2018 14:40:04 Reading Location: [facility] Radiology Reading Room Procedure Note Interface, External Ris In - 08/17/2018 2:42 PM WATCHSTANDER FINAL REPORT TECHNIQUE: Lateral views of the thoracic spine dated 08/17/2018. HISTORY: Back pain. COMPARISON: None. IMPRESSION: Frontal view was not provided therefore counting of the vertebral bodies is not possible. The cervical thoracic junction is not well-visualized. Bones are osteopenic. There is an exaggerated thoracic kyphosis in the upper thoracic spine. No fracture. Signed: Willa Powell MD Report Verified Date/Time: 08/17/2018 14:40:04 Reading Location: [facility] Radiology Reading Room Performing Organization Address City/State/Zipcode Phone Number RIS * XR spine lumbar 1 view (08/17/2018 2:20 PM WATCHSTANDER) Narrative Performed At FINAL REPORT [facility] TECHNIQUE: Lateral views of the lumbosacral spine dated 08/17/2018 HISTORY: Back pain. COMPARISON: None. Impression: There are 5 oxm-nva-ybaqdms vertebral bodies. Bones are osteopenic. There is a normal lumbar lordosis. No fracture or malalignment is seen. Intervertebral disc spaces are normal in height. Signed: Willa Powell MD Report Verified Date/Time:08/17/2018 14:41:07 Reading Location: [facility] Radiology Reading Room Procedure Note Interface, External Ris In - 08/17/2018 2:43 PM WATCHSTANDER FINAL REPORT TECHNIQUE: Lateral views of the lumbosacral spine dated 08/17/2018 HISTORY: Back pain. COMPARISON: None. Impression: There are 5 kkn-ngm-pkrjqte vertebral bodies. Bones are osteopenic. There is a normal lumbar lordosis. No fracture or malalignment is seen. Intervertebral disc spaces are normal in height. Signed: Willa Powell MD Report Verified Date/Time: 08/17/2018 14:41:07 Reading Location: [facility] Radiology Reading Room Performing Organization Address City/State/Zipcode Phone Number [facility] * Anti-Neutrophil Cytoplasmic Ab (ANCA) (08/17/2018 7:10 AM WATCHSTANDER) Proteinase-3 Ab <1.0 <1.0 AI [facility] Comment: INCORPORATED <1.0 AI No Antibody Detected > or=1.0 AI Antibody Detected Autoantibodies to proteinase-3 (ID-3) are accepted as characteristic for granulomatosis with polyangiitis (GPA, Aziza's), and are detectable in 95% of the histologically proven cases. The cytoplasmic IFA pattern, (c-ANCA), is based largely on autoantibody to ID-3 which serves as the primary antigen. These autoantibodies are present in active disease. Myeloperoxidase Ab <1.0 <1.0 AI [facility] Comment: INCORPORATED <1.0 AI No Antibody Detected > or=1.0 AI Antibody Detected Autoantibodies to myeloperoxidase (MPO) are commonly associated with the following small-vessel vasculitides: microscopic polyangiitis, polyarteritis nodosa, Churg-Gaurav syndrome, necrotizing and crescentic glomerulonephritis and occasionally granulomatosis with polyangiitis (GPA, Aziza's). The perinuclear IFA pattern, (p-ANCA) is based largely on autoantibody to myeloperoxidase which serves as the primary antigen. These autoantibodies are present in active disease. Specimen Blood - Arm, Left Narrative Performed At Performing Lab [facility] [address] [place] [address] Lawrence Chow MD, PhD, MARY Performing Organization Address [facility] Phone Number [facility] [address] [place], [place] [facility] [address] [address] * Phosphatidylserine Abs (IgG, IgM) (08/17/2018 7:07 AM WATCHSTANDER) Phos.Serine Ab IgG <10 U/mL [facility] Comment: INCORPORATED <10 Negative 10-20Equivocal- Found in small percentage of the healthy population; may be reactive >20 Positive - Risk factor for thrombosis and loss PHOSPHATIDYLSERINE AB <25 U/mL [facility] (IGM) Comment: INCORPORATED The antiphospholipid antibody syndrome (APS) is a clinical-pathologic correlation that includes a clinical event (e.g. thrombosis, loss, thrombocytopenia) and persistent positive antiphospholipid antibodies (IgM or IgG ELYSE >40 MPL/GPL,IgM or IgG anti-b2GPI antibodies or a lupus anticoagulant). International consensus guidelines for APS suggest waiting at least 12 weeks before retesting to confirm antibody persistence. The Systemic Lupus International [facility] immunological classification criteria for systemic lupus erythematosus (SLE) include testing for isotype IgA, which has yet to be incorporated into APS criteria. Low level antiphospholipid antibodies may sometimes be detected in the setting of infection, drug therapy or aging. <25 Negative 25-35Equivocal- Found in small percentage of the healthy population; may be reactive >35 Positive - Risk factor for thrombosis and loss For more information on this test, go to: http://education.[employer].com/faq/UHB945 Specimen Blood - Arm, Left Narrative Performed At Performing Lab [facility] [address] [place] [address] [place] [address] Lawrence Chow MD, PhD, MARY Performing Organization Address City/[facility]/Zipcode Phone Number [facility] [employer] [place], [address] [place], [place] [address] [address] * FOUZIA Titer & Pattern (08/17/2018 7:07 AM WATCHSTANDER) FOUZIA Titer 1:640 [facility] FOUZIA Pattern Homogeneous [facility] Specimen Blood - Arm, Left Performing Organization Address [facility] Phone Number [address] * Double-Stranded DNA (dsDNA) Antibody (08/17/2018 7:07 AM WATCHSTANDER) ds DNA Ab Negative [facility] Specimen Blood - Arm, Left Performing Organization Address [facility] Phone Number [address] * Complement, Total (CH50) (08/17/2018 7:07 AM WATCHSTANDER) Complement,Total(Ch50) >60 (H) 31 - 60 U/mL [facility] Specimen Blood - Arm, Left Narrative Performed At Performing Lab [facility] [address] [address] Lawrence Chow MD, PhD, MARY Performing Organization Address [facility] Phone Number [facility], [address] [place] [address] [address] * Complement Component C3 (08/17/2018 7:07 AM WATCHSTANDER) C3 Complement 101 82 - 193 mg/dL [facility] Specimen Blood - Arm, Left Performing Organization Address [facility] Phone Number [address] * Complement Component C4 (08/17/2018 7:07 AM WATCHSTANDER) C4 Complement 19 15 - 57 mg/dL [facility] Specimen Blood - Arm, Left Performing Organization Address [facility] Phone Number [address] * Anti-Nuclear Antibody (FOUZIA) (08/17/2018 7:07 AM WATCHSTANDER) FOUZIA Positive (A) Negative [facility] Specimen Blood - Arm, Left Narrative Performed At Test performed by IFA method. [facility] Performing Organization Address [facility]/Zipcode Phone Number [facility] [address] [place] [address] [facility] * Basic metabolic panel (08/17/2018 7:07 AM WATCHSTANDER) Only the most recent of 3 results within the time period is included. Sodium 136 136 - 145 meq/L [facility] Potassium 4.0 3.5 - 5.1 meq/L [facility] Chloride 105 98 - 107 meq/L [facility] CO2 25 22 - 29 meq/L [facility] BUN 13 7 - 21 mg/dL [facility] Creatinine 0.82 0.57 - 1.25 mg/dL [facility] Glucose 91 70 - 105 mg/dL [facility] Calcium 8.7 8.4 - 10.2 mg/dL [facility] EGFR 92Comment: ESTIMATED GFR IS mL/min/1.73 sq m [facility] NOT ACCURATE CREATININE [facility] CLEARANCE IN PREDICTING GLOMERULAR FILTRATION RATE. ESTIMATED GFR IS NOT APPLICABLE FOR DIALYSIS PATIENTS. Specimen Blood - Arm, Left Performing Organization Address [facility]/Zipcode Phone Number [facility] [address] [place] [address] [facility] * US renal complete (08/16/2018 8:39 AM WATCHSTANDER) Narrative Performed At FINAL REPORT [facility] Ultrasound of the Kidneys Clinical History:flank pain/hematuria Discussion: Sonographic evaluation of the kidneys is performed. Right kidney:10.8 x 4.8 x 5.6 cm, with cortical thickness of 1.5 cm.Normal cortical echogenicity.No mass.No shadowing calculus. No hydronephrosis. Left kidney: 10.1 x 5.1 x 4.6 cm, with cortical thickness of 1.6 cm. Normal cortical echogenicity.No mass.No shadowing calculus.No hydronephrosis. Limited doppler evaluation of bilateral main renal arteries and veins demonstrate patency. Bladder:Unremarkable. Prevoid volume measures 150 cc. There is no post void residual. Impression: Unremarkable exam. Signed: Елена Brush MD Report Verified Date/Time:08/16/2018 16:03:48 Reading Location: [address] Ultrasound Reading Room Procedure Note Interface, External Ris In - 08/16/2018 4:06 PM WATCHSTANDER FINAL REPORT Ultrasound of the Kidneys Clinical History: flank pain/hematuria Discussion: Sonographic evaluation of the kidneys is performed. Right kidney: 10.8 x 4.8 x 5.6 cm, with cortical thickness of 1.5 cm. Normal cortical echogenicity. No mass. No shadowing calculus. No hydronephrosis. Left kidney: 10.1 x 5.1 x 4.6 cm, with cortical thickness of 1.6 cm. Normal cortical echogenicity. No mass. No shadowing calculus. No hydronephrosis. Limited doppler evaluation of bilateral main renal arteries and veins demonstrate patency. Bladder: Unremarkable. Prevoid volume measures 150 cc. There is no post void residual. Impression: Unremarkable exam. Signed: Елена Brush MD Report Verified Date/Time: 08/16/2018 16:03:48 Reading Location: [address] Ultrasound Reading Room Performing Organization Address City/[facility]/Zipcode Phone Number [facility] * Creatine Kinase (CK) (08/16/2018 4:48 AM WATCHSTANDER) Total CK 25 (L) 29 - 200 U/L [facility] Specimen Blood - Arm, Left Performing Organization Address City/[facility]/Zipcode Phone Number [facility] [address] [place] [address] [facility] * CBC with platelet count + automated diff (08/15/2018 6:33 AM WATCHSTANDER) Only the most recent of 2 results within the time period is included. WBC 7.9 3.5 - 10.5 K/L [facility] RBC 3.57 (L) 3.93 - 5.22 M/L [facility] Hemoglobin 10.1 (L) 11.2 - 15.7 GM/DL [facility] Hematocrit 31.3 (L) 34.1 - 44.9 % [facility] MCV 87.7 79.4 - 94.8 fL [facility] MCH 28.3 25.6 - 32.2 pg [facility] MCHC 32.3 32.2 - 35.5 GM/DL [facility] RDW 13.2 11.7 - 14.4 % [facility] Platelets 229 150 - 450 K/CU MM [facility] MPV 10.6 9.4 - 12.3 fL [facility] nRBC 0 0 - 0 /100 WBC [facility] % Neutros 72 % [facility] % Lymphs 19 % [facility] % Monos 7 % [facility] % Eos 1 % [facility] % Baso 1 % [facility] # Neutros 5.69 1.56 - 6.13 K/L [facility] # Lymphs 1.50 1.18 - 3.74 K/L [facility] # Monos 0.57 (H) 0.24 - 0.36 K/L [facility] # Eos 0.09 0.04 - 0.36 K/L [facility] # Baso 0.05 0.01 - 0.08 K/L [facility] Immature 0 0 - 1 % [facility] Granulocytes-Relative [facility] Specimen Blood - Arm, Right Performing Organization Address City/State/Zipcode Phone Number [facility] [address] [place] [address] [facility] * CT abdomen/pelvis with IV contrast (08/14/2018 5:16 PM WATCHSTANDER) Narrative Performed At FINAL REPORT [facility] CT chest, abdomen, and pelvis with contrast. INDICATION: Chest wall pain L flank posterior rib pain swelling left posterior rib pain swelling, pyelonephritis with left flank pain and swelling COMPARISON: No prior studies available for comparison. TECHNIQUE: Multiple contiguous transaxial images of the chest, abdomen, and pelvis were obtained after the administration of intravenous contrast. This exam was performed according to our departmental dose optimization program which includes automated exposure control, adjustment of the mA and/or kV according to patient size and/or use of iterative reconstructive technique. FINDINGS: There is no pneumothorax, pulmonary edema or pleural effusion. There is no focal consolidation. The major airways are clear. The visualized portion of the thyroid gland appears unremarkable. There is no hilar, mediastinal or axillary lymphadenopathy. There is no pericardial effusion. The liver, spleen, pancreas, and adrenal glands are unremarkable. The gallbladder is unremarkable. There is no biliary dilatation. The stomach and duodenum are unremarkable. Both kidneys are unremarkable. There is early contrast excretion in the bilateral collecting systems. There is no hydronephrosis or hydroureter. There is air in the urinary bladder which can be correlated with history of recent instrumentation. There is a small amount of free fluid in the pelvis. There is constipation without mechanical bowel obstruction or perforation. The appendix appear unremarkable. There is no fluid collection or lymphadenopathy. The osseous structures demonstrate mild degenerative changes without acute fracture or traumatic malalignment. IMPRESSION: 1.. Air in the urinary bladder which can be correlated with history of recent instrumentation. 2. Small amount of free fluid in the pelvis. Signed: Clint Allan MD Report Verified Date/Time:08/14/2018 17:38:22 Reading Location: [facility] C0X Ortho Consult Reading Room Procedure Note Interface, External Ris In - 08/14/2018 5:40 PM WATCHSTANDER FINAL REPORT CT chest, abdomen, and pelvis with contrast. INDICATION: Chest wall pain L flank posterior rib pain swelling left posterior rib pain swelling, pyelonephritis with left flank pain and swelling COMPARISON: No prior studies available for comparison. TECHNIQUE: Multiple contiguous transaxial images of the chest, abdomen, and pelvis were obtained after the administration of intravenous contrast. This exam was performed according to our departmental dose optimization program which includes automated exposure control, adjustment of the mA and/or kV according to patient size and/or use of iterative reconstructive technique. FINDINGS: There is no pneumothorax, pulmonary edema or pleural effusion. There is no focal consolidation. The major airways are clear. The visualized portion of the thyroid gland appears unremarkable. There is no hilar, mediastinal or axillary lymphadenopathy. There is no pericardial effusion. The liver, spleen, pancreas, and adrenal glands are unremarkable. The gallbladder is unremarkable. There is no biliary dilatation. The stomach and duodenum are unremarkable. Both kidneys are unremarkable. There is early contrast excretion in the bilateral collecting systems. There is no hydronephrosis or hydroureter. There is air in the urinary bladder which can be correlated with history of recent instrumentation. There is a small amount of free fluid in the pelvis. There is constipation without mechanical bowel obstruction or perforation. The appendix appear unremarkable. There is no fluid collection or lymphadenopathy. The osseous structures demonstrate mild degenerative changes without acute fracture or traumatic malalignment. IMPRESSION: 1.. Air in the urinary bladder which can be correlated with history of recent instrumentation. 2. Small amount of free fluid in the pelvis. Signed: Clint Allna MD Report Verified Date/Time: 08/14/2018 17:38:22 Reading Location: [facility] [id number] [facility] Consult Reading Room Performing Organization Address City/State/Zipcode Phone Number [facility] * CT chest with IV contrast (08/14/2018 5:16 PM WATCHSTANDER) Narrative Performed At FINAL REPORT [facility] chest, abdomen, and pelvis with contrast. INDICATION: Chest wall pain L flank posterior rib pain swelling left posterior rib pain swelling, pyelonephritis with left flank pain and swelling COMPARISON: No prior studies available for comparison. TECHNIQUE: Multiple contiguous transaxial images of the chest, abdomen, and pelvis were obtained after the administration of intravenous contrast. This exam was performed according to our departmental dose optimization program which includes automated exposure control, adjustment of the mA and/or kV according to patient size and/or use of iterative reconstructive technique. FINDINGS: There is no pneumothorax, pulmonary edema or pleural effusion. There is no focal consolidation. The major airways are clear. The visualized portion of the thyroid gland appears unremarkable. There is no hilar, mediastinal or axillary lymphadenopathy. There is no pericardial effusion. The liver, spleen, pancreas, and adrenal glands are unremarkable. The gallbladder is unremarkable. There is no biliary dilatation. The stomach and duodenum are unremarkable. Both kidneys are unremarkable. There is early contrast excretion in the bilateral collecting systems. There is no hydronephrosis or hydroureter. There is air in the urinary bladder which can be correlated with history of recent instrumentation. There is a small amount of free fluid in the pelvis. There is constipation without mechanical bowel obstruction or perforation. The appendix appear unremarkable. There is no fluid collection or lymphadenopathy. The osseous structures demonstrate mild degenerative changes without acute fracture or traumatic malalignment. IMPRESSION: 1.. Air in the urinary bladder which can be correlated with history of recent instrumentation. 2. Small amount of free fluid in the pelvis. Signed: Clint Allan MD Report Verified Date/Time:08/14/2018 17:38:22 Reading Location: [facility] C013X Ortho Consult Reading Room Procedure Note Interface, External Ris In - 08/14/2018 5:40 PM WATCHSTANDER FINAL REPORT CT chest, abdomen, and pelvis with contrast. INDICATION: Chest wall pain L flank posterior rib pain swelling left posterior rib pain swelling, pyelonephritis with left flank pain and swelling COMPARISON: No prior studies available for comparison. TECHNIQUE: Multiple contiguous transaxial images of the chest, abdomen, and pelvis were obtained after the administration of intravenous contrast. This exam was performed according to our departmental dose optimization program which includes automated exposure control, adjustment of the mA and/or kV according to patient size and/or use of iterative reconstructive technique. FINDINGS: There is no pneumothorax, pulmonary edema or pleural effusion. There is no focal consolidation. The major airways are clear. The visualized portion of the thyroid gland appears unremarkable. There is no hilar, mediastinal or axillary lymphadenopathy. There is no pericardial effusion. The liver, spleen, pancreas, and adrenal glands are unremarkable. The gallbladder is unremarkable. There is no biliary dilatation. The stomach and duodenum are unremarkable. Both kidneys are unremarkable. There is early contrast excretion in the bilateral collecting systems. There is no hydronephrosis or hydroureter. There is air in the urinary bladder which can be correlated with history of recent instrumentation. There is a small amount of free fluid in the pelvis. There is constipation without mechanical bowel obstruction or perforation. The appendix appear unremarkable. There is no fluid collection or lymphadenopathy. The osseous structures demonstrate mild degenerative changes without acute fracture or traumatic malalignment. IMPRESSION: 1.. Air in the urinary bladder which can be correlated with history of recent instrumentation. 2. Small amount of free fluid in the pelvis. Signed: Clint Allan MD Report Verified Date/Time: 08/14/2018 17:38:22 Reading Location: [facility] C013X Ortho Consult Reading Room Performing Organization Address City/State/Zipcode Phone Number GE RIS * Urinalysis w/Microscopic + Reflex to Culture (08/14/2018 3:42 PM WATCHSTANDER) Color, UA Yellow [facility] [place] Clarity, UA Clear [facility] [place] Specific [place], UA 1.010 1.001 - 1.035 [facility] pH, UA 7.0 5.0 - 8.0 [facility] Protein, UA Negative Negative [facility] Glucose, UA Negative Negative [facility] [place] Ketones, UA Negative Negative [facility] [place] Bilirubin, UA Negative Negative [facility] Blood, UA Moderate (A) Negative [facility] Nitrite, UA Negative Negative [facility] Leukocytes, UA Negative Negative [facility] Urobilinogen, UA 0.2 0.2 - 1.0 mg/dL [facility], [facility] Bacteria, UA Few [facility] RBC, UA 10-20 /HPF [facility] WBC, UA <5 /HPF [facility] SQUAMOUS EPITHELIAL <5 /HPF [facility] Specimen Source [facility] Specimen Urine - Urine, Voided Performing Organization Address [facility] Phone Number [address] [phone] [facility], [facility] * Screen, urine (08/14/2018 3:42 PM WATCHSTANDER) Preg Test, Ur Negative [facility] Specimen Urine - Urine, Voided Performing Organization Address [facility] Phone Number [address] [phone] [facility] * PT/aPTT (08/14/2018 2:01 PM WATCHSTANDER) Protime 10.5 9.8 - 12.0 seconds [facility] INR 1.0 <=5.9 [facility] PTT 23.3 (L) 25.8 - 34.5 seconds [facility] Specimen Blood - Arm, Right Narrative Performed At RECOMMENDED COUMADIN/WARFARIN INR THERAPY RANGES [facility] STANDARD DOSE: 2.0 - 3.0 Includes: PROPHYLAXIS for venous thrombosis, [facility] systemic embolization; TREATMENT for venous thrombosis and/or pulmonary embolus. [facility] HIGH RISK: Target INR is 2.5-3.5 for patients with mechanical heart valves. [facility], [facility] Performing Organization Address City/State/Zipcode Phone Number [facility] [address] [place] [address] [facility] * Comprehensive metabolic panel (08/14/2018 2:01 PM WATCHSTANDER) Protein, Total 8.5 6.0 - 8.5 gm/dL [facility] [place] Albumin 4.4 3.5 - 5.0 g/dL [facility] Alkaline Phosphatase 52 30 - 115 U/L [facility] Total Bilirubin 0.6 0.1 - 1.2 mg/dL [facility] [place] Sodium 143 135 - 148 meq/L [facility] Potassium 5.0 3.6 - 5.5 meq/L [facility] Chloride 108 (H) 98 - 106 meq/L [facility] CO2 27 24 - 32 meq/L [facility] BUN 9 (L) 10 - 26 mg/dL [facility] Creatinine 0.72 0.50 - 1.20 mg/dL [facility] Glucose 83 70 - 110 mg/dL [facility] Calcium 9.2 8.5 - 10.5 mg/dL [facility] AST 36 5 - 40 U/L [facility] ALT 38 5 - 50 U/L [facility] [place] EGFR Comment: INSUFFICIENT CLINICAL mL/min/1.73 sq m [facility] DATA TO CALCULATE ESTIMATED [facility] GFR. [place], [facility] Specimen Blood - Arm, Right Performing Organization Address City/State/Zipcode Phone Number [facility] [address] [place] [address] [facility] [place] after 08/26/2017 Insurance Payer Benefit Subscriber ID Type Phone Address Plan / Group [employer] - [employer] CARE [employer] HMO xxxxxxxxxx HMO/POS POS QPOS Advance Directives For more information, please contact: [facility] [address] [place], [place] [phone] Date Inactivated Comments Code Status Date Activated 08/20/2018 3:27 PM Full Code 08/14/2018 9:42 PM This code status was determined by: Patient
== END 2018-08-27 20:36 | disposition left against medical advice (07) ==
LOC: ER 20:06
DX: R31.9 Hematuria, unspecified (principal)